=== PATIENT | female | born 1995 | race Caucasian/White ===

== ENCOUNTER 2018-10-11 11:16 | Emergency (ER) | payer SELFPAY ==
[~2018-10-11] VITALS: Ht 152.4 cm; Wt 71.8 kg
[~2018-10-11 11:16] MED LIST: DULO30CA45 PO; GABA-526 PO; NALO4SPR NS; OMEP20CA16 PO; PROP10TA6 PO; QUET100T PO; RANI150T35 PO
[2018-10-11 11:20] VITALS: Ht 152.4 cm; Wt 71.8 kg
[2018-10-11 14:00] VITALS: BP 111/73; PULSE 89; RESP 18
== END 2018-10-11 14:20 | disposition home or self-care (01) ==
LOC: E/R 11:16
DX: T40.4X1A Poisoning by other synthetic narcotics, accidental (unintentional), initial encounter (principal); X58.XXXA Exposure to other specified factors, initial encounter; Y92.9 Unspecified place or not applicable
CPT/HCPCS: 99283